=== PATIENT | female | born 1975 | race African-American/Black ===

== ENCOUNTER → 2017-03-14 | Outpatient (CLI) | payer OTHER ==
--- NOTE | 2017-03-14 10:29 | RAD ---
DATE: 03/14/2017 EXAM: DIGITAL DIAGNOSTIC BILATERAL, BREAST LEFT HISTORY: Screening] breast. Follow-up examination left breast. COMPARISON: Note is made of a screening examination 02/14/2016 and a diagnostic study targeted to the left breast 02/22/2016. This study was interpreted with the benefit of Computerized Aided Detection (CAD). FINDINGS: Breast Density: HETERO The breast parenchyma Is heterogeneiously dense, which could reduce sensitivity of mammography. Breast parenchyma level C. On mammography there has not been a significant change in the appearance of the breasts. Targeted ultrasound of the left breast was performed similar to the previous exam. There is a cyst at the 3:00 position of the breast slightly larger than on the previous exam. Irregularity seen at the 4:00 position of the left breast, previously, is no longer seen. IMPRESSION: Benign findings BI-RADS CATEGORY: 2 BENIGN FINDING(S) RECOMMENDED FOLLOW-UP: 12M 12 MONTH FOLLOW-UP PQRS compliance statement: Patient information was entered into a reminder system with a target due date 03/14/2018 for the next mammogram. Mammography is a sensitive method for finding small breast cancers, but it does not detect them all and is not a substitute for careful clinical examination. A negative mammogram does not negate a clinically suspicious finding and should not result in delay in biopsying a clinically suspicious abnormality. "Our facility is accredited by the [employer] Mammography Program."
== END | disposition home or self-care (01) ==
LOC: MAMMO 09:42
PROVIDERS: ATTEND Internal Medicine
DX: R92.8 Other abnormal and inconclusive findings on diagnostic imaging of breast (principal)
CPT/HCPCS: 76641; G0204; 77066

== ENCOUNTER → 2017-06-26 | Outpatient (CLI) | payer OTHER ==
--- NOTE | 2017-06-27 14:36 | CARD ---
APPROVED REPORT INDICATION Hypertension/HCVD RISK FACTORS Hypertension Reason : Patient complained of pain PROCEDURE The patient underwent an exercise Stress Test using the [facility] protocol. Blood pressure, heart rate, a nd EKG were monitored. An Echocardiogram was performed by retail service technician in four stages in quad fashion. At peak stress four se lected images were obtained and placed side by side with resting images for comparison. STRESS ECHO FINDINGS The resting Echocardiogram showed normal left ventricular contractility with an estimated Ejection Fr action of about 55 %. Normal augmentation of myocardial wall segments using a 16 segment model. Test Type: Pharmacological Stress Nurse/Tech: Catalina Alvarado Test Indications: Dyspnea on Exertion Cardiac History and Allergies: see ehr Medications: see ehr Medical History: see ehr Resting ECG: SR Resting Heart Rate: 90 bpm Resting Blood Pressure: 116/70mmHg Pretest Chest Pain: None Nurse/Tech Notes Lungs CTA, S1, S2 Consent: The procedure was explained to the patient in lay terms. Informed consent was witnessed. Juanjo eout was entered into [facility]. History and Stress Test performed by Catalina Alvarado R.N. Stress Symptoms No chest pain or symptoms. POST EXERCISE Reason for Termination: Reached target heart rate, Patient request Target HR: Yes Max HR: 180 bpm 102% of Maximum Predicted HR: 176 bpm Exercise duration: 6:55 min:sec, 3 Stage Exercise capacity: 10.1METs Max Blood Pressure: 148/68mmHg Blood Pressure response to exercise: Normal blood pressure response during stress. Chest Pain: No. Arrhythmia: No. ST Change: No. INTERPRETATION Stress EKG Conclusion: No acute changes were noted. STRESS ECG Stress EKG shows no significant changes. Preliminary Notification Critical Value: No <Conclusion> The left ventricle is normal in size and wall thickness in both the rest and stress images. EF normal at stress/rest. Good exercise capacity with 10.1 Mets. Negative EKG.
== END | disposition home or self-care (01) ==
LOC: ECHO 13:17
PROVIDERS: ATTEND Internal Medicine Cardiovascular Disease
DX: I10 Essential (primary) hypertension (principal)
CPT/HCPCS: 93017; 93350

== ENCOUNTER → 2018-04-07 | Outpatient (CLI) | payer OTHER | END | disposition home or self-care (01) | LOC: MAMMO 16:15 | DX: Z12.31 Encounter for screening mammogram for malignant neoplasm of breast (principal) | CPT/HCPCS: 77067 ==

== ENCOUNTER → 2018-04-17 | Outpatient (CLI) | payer OTHER | END | disposition home or self-care (01) | LOC: MAMMO 13:05 | DX: R92.8 Other abnormal and inconclusive findings on diagnostic imaging of breast (principal) | CPT/HCPCS: 76641; 77066; G0279 ==

== ENCOUNTER → 2019-04-19 | Outpatient (CLI) | payer OTHER ==
--- NOTE | 2019-04-19 10:12 | RAD ---
DATE: 04/19/2019 EXAM: MAMMO ANTONIO SCREENING BILATERAL HISTORY: Routine screening COMPARISON: 04/17/2018, 04/07/2018 This study was interpreted with the benefit of Computerized Aided Detection (CAD). Breast Density: HETERO The breast parenchyma is heterogenously dense, which could reduce sensitivity of mammography. Breast parenchyma level C. FINDINGS: 2-D and 3-D tomosynthesis imaging was performed in CC and MLO projections. There are multiple smooth nodules in both breasts, more numerous on the left. The largest of these on the right lies in the retroareolar region and measures 18 mm. The largest of these on the left lies anterolaterally and measures 21 mm. These have increased in number and several of these have increased in size since 04/17/2018. The findings are compatible with multiple breast cysts as noted on the 04/17/2018 ultrasound exam. No spiculated mass or architectural distortion is seen. There are benign type calcifications in both breasts. No suspicious microcalcifications have developed. IMPRESSION: Smooth bilateral breast nodules have increased in size and number and are compatible with patient's known bilateral breast cysts. No suspicious breast mass has developed. BI-RADS CATEGORY: 2 BENIGN FINDING(S) RECOMMENDED FOLLOW-UP: 12M 12 MONTH FOLLOW-UP PQRS compliance statement: Patient information was entered into a reminder system with a target due date for the next mammogram. Mammography is a sensitive method for finding small breast cancers, but it does not detect them all and is not a substitute for careful clinical examination. A negative mammogram does not negate a clinically suspicious finding and should not result in delay in biopsying a clinically suspicious abnormality. "Our facility is accredited by the [employer] Mammography Program."
== END | disposition home or self-care (01) ==
LOC: MAMMO 08:51
PROVIDERS: ATTEND Internal Medicine
DX: Z12.31 Encounter for screening mammogram for malignant neoplasm of breast (principal); N63.20 Unspecified lump in the left breast, unspecified quadrant; N63.10 Unspecified lump in the right breast, unspecified quadrant; N64.89 Other specified disorders of breast
CPT/HCPCS: 77063; 77067

== ENCOUNTER → 2020-09-19 | Outpatient (CLI) | payer OTHER ==
--- NOTE | 2020-09-19 11:47 | RAD ---
Examination: 1. Bilateral digital diagnostic mammogram. 2. Limited left breast ultrasound. INDICATION: 44-year-old woman due for screening presents with a palpable mass in the left breast. COMPARISON: Screening mammograms of 04/07/2018 and left diagnostic mammogram and breast ultrasound of 04/17/2018, and bilateral mammogram of 04/19/2019. TECHNIQUE: Bilateral CC and MLO views were obtained with 2-D technique and reviewed with computer-aided detection. A BB marker was placed on the area of patient reported palpable concern. Targeted ultrasound of the area of palpable concern was subsequently performed. FINDINGS: Scattered fibroglandular densities. Negative right mammogram. Waxing and waning pattern of nodularity in the left breast compatible with benign cystic change is present. Area of palpable concern as marked at the skin surface with a BB marker corresponds with a gradually enlarging cyst in the left breast as previously evaluated by ultrasound. On mammogram, it is circumscribed, oval, isodense to breast parenchyma, and has adjacent benign calcifications. Targeted left breast ultrasound identifies at the left 3:00 position 2 cm from the nipple an oval well circumscribed parallel orientation 2 cm cyst with layering debris, corresponding with the mammographic and clinical findings. Sonographic survey of the left axilla reveals no adenopathy. IMPRESSION: Benign findings on targeted left breast ultrasound and bilateral mammogram. No evidence of malignancy. Recommend clinical management (which may include biopsy if there are any clinically suspicious findings). In the absence of any clinically suspicious findings, routine mammographic screening next due in one year is recommended. BI-RADS Category 2 Benign findings Patient entered into a reminder system with targeted due date for next mammogram. Electronically signed by: Feliz Santos MD (09/19/2020 11:44 AM) [id number]
== END ==
LOC: MAMMO 10:59
PROVIDERS: ATTEND Internal Medicine
DX: R92.2 Inconclusive mammogram (principal); N63.21 Unspecified lump in the left breast, upper outer quadrant
CPT/HCPCS: 76641; 77066

== ENCOUNTER → 2021-10-08 | Outpatient (CLI) | payer OTHER ==
--- NOTE | 2021-10-09 15:49 | RAD ---
Bilateral digital screening 2-D and 3-D (digital breast tomosynthesis) mammogram: Reason for examination: Routine screening. Comparison: MammogramS from 04/19/2019 and 09/19/2020. Left breast ultrasound from 09/19/2020. Interpretation was made with the benefit of CAD. FINDINGS: Breast density: Category B. There are scattered areas of fibroglandular density. There are multiple oval circumscribed masses in both breasts which have waxed and waned in size. The largest is in the left retroareolar region and has previously been demonstrated to represent a cyst. No suspicious breast mass, malignant appearing calcifications, or architectural distortion is seen. IMPRESSION: No evidence of malignancy. Assessment: BI-RADS 2. Benign findings. Recommendation: Routine screening mammograms. The patient will receive a letter with the results in the mail. Patient information will be entered i nto the mammography reminder system with a target recall date for the next mammogram. A reminder cristian er will be generated. Electronically signed by: Carrie Butt MD (10/09/2021 3:46 PM) [id number]
== END ==
LOC: MAMMO 15:12
PROVIDERS: ATTEND Internal Medicine
DX: Z12.31 Encounter for screening mammogram for malignant neoplasm of breast (principal)
CPT/HCPCS: 77063; 77067